=== PATIENT | female | born 1960 | race Caucasian/White ===

== ENCOUNTER → 2017-01-22 | Outpatient (CLI) | payer BC ==
[2017-01-23 12:09] LABS: URINE APPEARANCE CLEAR (CLEAR); URINE BILIRUBIN NEG (NEG); URINE COLOR YELLOW; URINE EPITHELIAL CELL AUTO 0-5 /lpf (0-5); URINE NITRITE NEG (NEG); URINE PH 5.5 (4.5-7.5); URINE SPECIFIC GRAVITY 1.014 (1.000-1.030); UROBILINOGEN NEG (NEG); ZZUR CULT IF INDIC CLEAN CATCH NO
[2017-01-23 12:13] LABS: MANUAL MICROSCOPIC REQUIRED? NO; REVIEW REQ? NO
== END | disposition home or self-care (01) ==
LOC: C.LABSPEC 08:28
PROVIDERS: ATTEND Physician Assistant
DX: R39.9 Unspecified symptoms and signs involving the genitourinary system (principal)

== ENCOUNTER → 2017-04-11 | Outpatient (CLI) | payer BC ==
--- NOTE | 2017-04-11 08:40 | DIAGNOSTIC IMAGING REPORT ---
CT OF THE SINUSES WITHOUT CONTRAST FUSION PROTOCOL CLINICAL HISTORY: Chronic sinusitis. Right maxillary and frontal sinus pain and pressure. COMPARISON STUDY: No previous studies for comparison. TECHNIQUE: Axial images of the sinuses were obtained without IV contrast according to Fusion protocol. Coronal reformats were viewed. FINDINGS: Visualized portions of the intracranial contents are unremarkable on this unenhanced examination. Mastoid air cells are clear. There is no fluid within the middle ears. The orbits are unremarkable. Postsurgical findings are noted within the sinuses. Defects within the medial hernández of the maxillary sinuses reflect maxillary antrostomies. Bilateral ethmoidectomies are noted. Major drainage pathways are patent. There is wall thickening of the left maxillary sinus with a trace air-fluid level within the left maxillary sinus. Frontal sinuses are clear. There is mild mucosal thickening of the ethmoid sinuses. Sphenoid sinuses and the right maxillary sinus are clear. There is no bony destruction. There is no mass within the sinuses or the nasal cavity. Minimal leftward deviation of the nasal septum is noted. Cribriform plate is intact. IMPRESSION: 1. Trace air-fluid level within the left mastoid sinus with mild mucosal thickening of the sinuses. 2. Postoperative findings within the frontal, ethmoid and sphenoid sinuses, as described above. Patent major drainage pathways. 3. Minimal leftward deviation of the nasal septum. Electronically signed by: Carlos Cronin M.D. 04/11/2017 8:39 AM Dictated Date/Time: 04/11/2017 8:31 AM
== END | disposition home or self-care (01) ==
LOC: C.CTS 07:42
DX: J32.9 Chronic sinusitis, unspecified (principal)

== ENCOUNTER → 2017-07-29 | Outpatient (CLI) | payer BC ==
--- NOTE | 2017-07-30 13:40 | MAMMOGRAPHY REPORT ---
BILATERAL DIGITAL SCREENING MAMMOGRAM TOMOSYNTHESIS WITH CAD: 07/29/2017 CLINICAL HISTORY: Routine screening. Patient has no complaints. TECHNIQUE: Breast tomosynthesis in addition to standard 2D mammography was performed. Current study was also evaluated with a Computer Aided Detection (CAD) system. COMPARISON: Comparison is made to exams dated: 06/28/2016 mammogram, 06/18/2015 mammogram, and 2014 mammogram. BREAST COMPOSITION: The tissue of both breasts is heterogeneously dense, which may obscure small mas ses. FINDINGS: There are mild vascular calcifications and a few scattered benign-appearing calcifications in the breasts. No suspicious mass, architectural distortion or cluster of suspicious microcalcifica tions is seen. IMPRESSION: ACR BI-RADS CATEGORY 1: NEGATIVE There is no mammographic evidence of malignancy. A 1 year screening mammogram is recommended. The pa tient will receive written notification of the results. Approximately 10% of breast cancers are not detected with mammography. A negative mammographic report should not delay biopsy if a clinically suggestive mass is present. Jacey Garza M.D. ay/:07/29/2017 16:07:13 Rn Pediatric: Rosey PYLE(R)(M), [facility] letter sent: Normal 1/2 BI-RADS Code: ACR BI-RADS Category 1: Negative
== END | disposition home or self-care (01) ==
LOC: C.MAMM 12:09
PROVIDERS: ATTEND Family Medicine
DX: Z12.31 Encounter for screening mammogram for malignant neoplasm of breast (principal)

== ENCOUNTER → 2017-11-07 | Outpatient (CLI) | payer BC | END | disposition home or self-care (01) | LOC: C.LABSPEC 13:56 | PROVIDERS: ATTEND Family Medicine | DX: R30.0 Dysuria (principal) ==